=== PATIENT | male | born 1975 | race Caucasian/White ===

== ENCOUNTER 2022-07-13 09:38 | Emergency (ER) | payer SELFPAY ==
[~2022-07-13] VITALS: Ht 185.4 cm; Wt 72.7 kg
[2022-07-13 09:49] VITALS: TEMP 97.8
[2022-07-13 10:29] LABS: EOS # 0.1 K/mm3 (0.0-0.7); EOS % 1.7 % (0.0-4.0); GRAN # 1.5 K/mm3 (1.4-6.5); GRAN % 50.8 % (42.2-75.2); HEMATOCRIT 48.9 % (42.0-52.0); HEMOGLOBIN 16.3 g/dl (13.5-18.0); LYMPH # 1.1 K/mm3 (1.2-3.4); MEAN CELL VOLUME 92 fl (80.0-100.0); MEAN CORPUSCULAR HEMOGLOBIN 31 pg (27-31); MEAN CORPUSCULAR HGB CONC 33 g/dl (33.0-37.0); MEAN PLATELET VOLUME 9.7 fl (7.4-10.4); MONO # 0.3 K/mm3 (0.1-0.6); MONO % 10.2 % (1.7-9.3); PLATELET COUNT 268 K/mm3 (130-400); REDCELL DISTRIBUTION WIDTH-CV 12.6 % (11.5-14.5)
[2022-07-13 10:44] LABS: PROTHROMBIN TIME 11.7 SECONDS (9.7-12.8)
[2022-07-13 10:47] LABS: PARTIAL THROMBOPLASTIN TIME 37.7 SECONDS (26.0-37.0)
[2022-07-13 10:58] LABS: ALANINE AMINOTRANSFERASE 14 U/L (0-55); ALBUMIN 4.3 gm/dL (3.5-5.0); ALKALINE PHOSPHATASE 66 U/L (40-150); ANION GAP 9 mmol/L (7-16); AST,SGOT 18 U/L (5-34); BILIRUBIN,TOTAL 0.8 mg/dL (0.2-1.2); BLOOD UREA NITROGEN 10 mg/dL (9-21); CALCIUM 9.3 mg/dL (8.4-10.2); CARBON DIOXIDE 28 mmol/L (22-29); CHLORIDE 105 mmol/L (98-107); GLUCOSE 98 mg/dL (70-99); POTASSIUM 4.4 mmol/L (3.5-4.5); SODIUM 142 mmol/L (136-145); TOTAL PROTEIN 7.6 gm/dL (6.2-8.1)
[2022-07-13 11:09] LABS: TROPONIN-I < 0.010 ng/mL (0.00-0.033)
[2022-07-13] MEDS ORDERED: COZAAR 50MG50 MG/TAB PO (11:49)
[2022-07-13] MEDS ORDERED: NEURONTIN600 MG/TAB PO (11:49)
[2022-07-13] MEDS ORDERED: HCTZ 25MG TAB25 MG PO (11:49)
[2022-07-13 12:04] VITALS: BP 149/107; PULSE 76
== END 2022-07-13 12:08 | disposition home or self-care (01) ==
LOC: COL.ER 09:38
PROVIDERS: Family Medicine
DX: I10 Essential (primary) hypertension (principal); F41.9 Anxiety disorder, unspecified; Z28.310 Unvaccinated for COVID-19
CPT/HCPCS: J2060

== ENCOUNTER 2022-11-03 08:23 | Emergency (ER) | payer SELFPAY ==
[~2022-11-03] VITALS: Ht 185.4 cm; Wt 72.7 kg
[~2022-11-03 08:23] MED LIST: COZAAR 50MG50 MG/TAB PO; HCTZ 25MG TAB25 MG PO; MOBIC15 MG PO; NEURONTIN600 MG/TAB PO
[2022-11-03 08:29] VITALS: BP 108/73; TEMP 98.5
[2022-11-03] MEDS ORDERED: NEURONTIN600 MG/TAB PO (09:02)
[2022-11-03] MEDS ORDERED: MOTRIN 800800 MG/TAB PO (09:02)
[2022-11-03 09:22] VITALS: PULSE 90
== END 2022-11-03 09:23 | disposition home or self-care (01) ==
LOC: COL.ER 08:23
DX: Z76.0 Encounter for issue of repeat prescription (principal); M79.632 Pain in left forearm; Z28.310 Unvaccinated for COVID-19

== ENCOUNTER 2022-11-22 07:13 | Emergency (ER) | payer SELFPAY ==
[~2022-11-22] VITALS: Ht 185.4 cm; Wt 72.7 kg
[~2022-11-22 07:13] MED LIST changes: +MOTRIN 800800 MG/TAB PO
[2022-11-22 07:23] VITALS: BP 183/113; TEMP 98.1
[2022-11-22] MEDS ORDERED: AMOXICILLIN 8751 TAB PO (07:46)
[2022-11-22] MEDS ORDERED: NEURONTIN600 MG/TAB PO (07:58)
[2022-11-22 08:10] VITALS: PULSE 83
== END 2022-11-22 08:12 | disposition home or self-care (01) ==
LOC: COL.ER 07:13
DX: L03.031 Cellulitis of right toe (principal); F17.200 Nicotine dependence, unspecified, uncomplicated; Z28.310 Unvaccinated for COVID-19

== ENCOUNTER 2022-12-15 15:20 | Emergency (ER) | payer SELFPAY ==
[~2022-12-15] VITALS: Ht 185.4 cm; Wt 75.0 kg
[~2022-12-15 15:20] MED LIST changes: +AMOXICILLIN 8751 TAB PO
[2022-12-15 15:25] VITALS: BP 196/126; PULSE 96; TEMP 98.3
[2022-12-15] MEDS ORDERED: NEURONTIN600 MG/TAB PO (15:42)
== END 2022-12-15 15:55 | disposition home or self-care (01) ==
LOC: COL.ER 15:20
DX: Z76.0 Encounter for issue of repeat prescription (principal); M54.40 Lumbago with sciatica, unspecified side; Z98.890 Other specified postprocedural states; Z28.310 Unvaccinated for COVID-19